=== PATIENT | female | born 1985 | race Caucasian/White ===

== ENCOUNTER → 2017-10-31 | Outpatient (CLI) | payer OTHER ==
[~2017-10-31] MED LIST: ALBU17I INH; BENZ100 PO; MEDR4PAK3 PO; PRED10 PO; VARE1PAK3 PO; ZITH250T PO
== END ==
LOC: HRSP 07:29
PROVIDERS: ATTEND Internal Medicine Pulmonary Disease
DX: G47.30 Sleep apnea, unspecified (principal)
CPT/HCPCS: 36600; 82805; 94060; 94618; 94726; 94729